=== PATIENT | male | born 1995 | race Caucasian/White ===

== ENCOUNTER 2023-09-23 19:48 | Emergency (ER) | payer OTHER ==
[~2023-09-23] VITALS: Ht 175.3 cm; Wt 86.2 kg
== END 2023-09-23 23:02 | disposition home or self-care (01) ==
LOC: ER 19:48
DX: S93.491A Sprain of other ligament of right ankle, initial encounter (principal); W18.39XA Other fall on same level, initial encounter; Y93.89 Activity, other specified; Y92.89 Other specified places as the place of occurrence of the external cause